=== PATIENT | female | born 1965 | race Caucasian/White ===

== ENCOUNTER 2016-04-27 16:57 | Emergency (ER) | payer OTHER, MEDICARE ==
[~2016-04-27] VITALS: Ht 170.2 cm; Wt 146.1 kg
[~2016-04-27 16:57] MED LIST: A/B OTIC 54 MG/15 ML OT; ALREX5 ML OPH; AMOXIL500 MG PO; BACTRIM DS 8001 TAB PO; BENADRYL 50 MG50 MG PO; CARAFATE1 GM/10 ML PO; CLARITIN10 MG PO; CRESTOR20 MG PO; CYCLOBENZAPRINE10 M2 PO; DILAUDID2 MG PO; DOXYCYCLINE MO100 MG PO; E.E.S. 200200 MG/5 M PO; FUROSEMIDE20 MG PO; HUMALOG MIX 50/53 ML SC; HYDROMORPHONE HC2 MG PO; HYDROMORPHONE HY2 MG PO; KEFLEX 250MG C250 MG PO; KEFLEX500 MG PO; LANTUS100 U/ML SC; LEVOTHROID0.2 MG PO; LEVOTHYROXINE0.2 M2 PO; LISINOPRIL40 MG PO; LYRICA200 M1 PO; MEDROL DOSEPAK1 PAC PO; MIRALAX17 GM PO; MONTELUKAST SOD10 M1 PO; NASONEX17 GM NAS; NORVASC5 M1 PO; NOVOLOG 10300 UNITS/ SC; NOVOLOG MI300 UNITS/ SC; NOVOLOG MIX 70/33 ML SC; NYSTATIN-TRIAMC15 GM TOP; ONDANSETRON4 M1 PO; OXYCODONE HCL5 M1 PO; OXYCODONE5 MG PO; PANTOPRAZOLE SO40 M1 PO; PATADAY 2.5 ML2.5 ML OPH; POTASSIUM CHLO10 ME1 PO; ROBAXIN500 M1 PO; SERTRALINE HYD100 MG PO; Senokot S PO; TESSALON PERLE100 MG PO; TRILIPIX 135 M135 MG PO; VITAMIN D1000 IU PO; VITAMIN E PO; ZOFRAN 4 MG TABL4 MG PO
--- NOTE | 2016-04-27 19:04 | ED UPPER/LOWER EXTREMITY COMPL ---
History of Present Illness General Chief Complaint: Lower Extremity Problems Stated Complaint: SWELLING TO LOWER EXTREMITIES Source: patient Exam Limitations: no limitations Vital Signs & Intake/Output Vital Signs & Intake/Output Vital Signs Date Time Temp Pulse Resp B/P Pulse O2 O2 Flow FiO2 Ox Delivery Rate 04/27 1925 96.8 88 18 134/70 98 Room Air 04/27 1920 98 Room Air 04/27 1715 96.9 74 16 132/69 100 Room Air ED Intake and Output 04/28 0000 04/27 1200 Intake Total Output Total Balance Patient 322 lb Weight Allergies Coded Allergies: atorvastatin (From LIPITOR) (UNKNOWN 12/10/15) ciprofloxacin (RASH 12/10/15) etodolac (From LODINE) (HIVES 12/10/15) hydrocodone (RASH 07/03/15) latex (RASH 12/10/15) moxifloxacin (From AVELOX) (HIVES 12/10/15) tramadol (SHUTS DOWN KIDNEYS 12/10/15) Reconcile Medications Amlodipine Besylate (Norvasc) 5 MG TABLET 1 TAB PO DAILY BP (Reported) Aspirin (Ecotrin*) 81 MG TABLET.DR 1 TAB PO DAILY HEART/BLOOD (Reported) Diphenhydramine HCl (Benadryl) 50 MG CAP 1 CAP PO QPM SLEEP/RESTLESS LEGS ( Reported) Fenofibric Acid (Trilipix 135 MG CAP) 135 MG CAPSULE.DR 135 MG PO QPM HYPERLIPIDEMIA (Reported) Furosemide 20 MG TABLET 20 MG PO DAILY FLUID RETENTION (Reported) Furosemide (Lasix) 20 MG TABLET 1 TAB PO BID LEG SWELLING TAKE TWO PILLS TONIGHT, AND THEN TWICE A DAY UNTIL SATURDAY MORNING. Insulin Regular, Human (Humulin R U-500) 500 UNIT/ML (CONCENTRATED) VIAL 180 UNITS SC QAM DM (Reported) Insulin Regular, Human (Humulin R U-500) 500 UNIT/ML (CONCENTRATED) VIAL 160 UNITS SC QPM DM (Reported) Levothyroxine Sodium (Levothroid) 200 MCG TABLET 0.2 MG PO 0700,2100 THYROID FOLLOW UP TSH QWEEK AND CC: TO DR SOLORIO AND DR MCCALLUM TAKE ON AN EMPTY STOMACH Lisinopril 40 MG TABLET 40 MG PO QPM HTN (Reported) Loratadine (Claritin) 10 MG TAB 1 TAB PO DAILY ALLERGIES (Reported) Loteprednol Etabonate (Alrex 5 Ml) 5 ML PEDRO 1 GTT OPH BID BOTH EYES (Reported ) Methocarbamol (Robaxin) 500 MG TAB 1-2 TAB PO TID MUSCLE SPASMS (Reported) Mometasone Furoate (Nasonex) 50 MCG SPRAY.PUMP 1 SPRAY JAJA DAILY PRN SEASONAL ALLERGIES (Reported) Montelukast Sodium 10 MG TABLET 10 MG PO DAILY SEASONAL ALLERGIES (Reported) Multiple Vitamin (Multivitamins) 1 EACH TABLET 1 TAB PO DAILY SUPPLEMENT ( Reported) Nystatin/Triamcin (Nystatin-Triamcinolone Cream) 15 GM CREAM..G. 1 GIOVANY TOP BID Vulvovaginitis apply to affected area(s) Pantoprazole Sodium 40 MG TABLET.DR 1 TAB PO BID GI (Reported) Potassium Chloride [address] 1 TAB PO DAILY SUPPLEMENT (Reported) Pregabalin (Lyrica) 200 MG CAP 200 MG PO TID DEPRESSION (Reported) Rosuvastatin Calcium (Crestor) 20 MG TABLET 20 MG PO QPM HYPELIPIDEMIA ( Reported) SERTRALINE HCL (Sertraline Hydrochloride) 100 MG TABLET 150 MG PO QPM DEPRESSION (Reported) Vitamin E Mixed (Vitamin E) (Unknown Strength) TABLET (Unknown Dose) PO DAILY SUPPLEMENT (Reported) Triage Note: PT TO ED FOR BILATERAL LEG "SWELLING". PT REPORTING FOR PAST SEVERAL DAYS SHE HAS NOTICED SWELLING IN HER LEGS AFTER SHE HAS BEEN SITTING FOR A "LONG TIME" REPORTING CHRONIC INTERMITTENT SOB FOR PAST SEVERAL WEEKS. PT REPORTING HX OF "SPONTANEOUS" COMPARTMENT SYNDROME TO L LEG WITH CHRONIC SWELLING TO SURGICAL SITE. REPORTING "DOCTORS DONT WHERE WHERE IT CAME FRM I DIDNT INJURE IT OR ANYTHING". PT REPORTING ABLE TO SLEEP LYING DOWN AT NIGHT, DENIES CP, PALPITATIONS. ALSO REPORTING A HEADACHE. , REPORTING IT WAS "SPONTANEOUS) Triage Nurses Notes Reviewed? yes Onset: Gradual Duration: day(s): Timing: recent history Severity: mild Pain/Injury Location: Bilateral: Leg. Method of Injury: unknown Modifying Factors: Improves With: rest. Associated Symptoms: swelling HPI: 50 yo woman h/o compartment syndrome of left leg presents with diffuse uniform mild swelling of bilateral legs for the past 1-2 days. She notes no pain, difficulty ambulating. She has been taking her lasix as directed. She is otherwise well. Past History Travel History Traveled to [place] past 21 day No Medical History Any Pertinent Medical History? 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 History of MRSA: No History of VRE: No History of CDIFF: No Pneumonia Vaccine: 04/22/10 Surgical History Surgical History: , hysterectomy, LOWER LUMBAR SX DISCECTOMY CARPAL TUNNEL COMPARTMENT SYNDROME TONSILS TORTICOLIS compartment syndrome surgery Psychosocial History Who do you live with Daughter Services at Home None What is your primary language Greenlandic Tobacco Use: Never used ETOH Use: denies use Illicit Drug Use: denies illicit drug use Family History Family History, If Any: MOTHER CLL (chronic lymphoid leukemia) FH: diabetes mellitus Relation not specified for: Coronary artery disease in father Thyroid disease in father Hx Contributory? No Review of Systems Review of Systems Constitutional: Reports: no symptoms. EENTM: Reports: no symptoms. Respiratory: Reports: no symptoms. Cardiovascular: Reports: no symptoms. Gastrointestinal/Abdominal: Reports: no symptoms. Genitourinary: Reports: no symptoms. Musculoskeletal: Reports: no symptoms. Skin: Reports: no symptoms. Neurological/Psychological: Reports: no symptoms. Hematologic/Endocrine: Reports: no symptoms. Immunological: Reports: no symptoms. All Other Systems: Reviewed and Negative Physical Exam Physical Exam General Appearance: well developed/nourished, mild distress Head: atraumatic Eyes: Bilateral: normal appearance. Ears, Nose, Throat: normal pharynx, normal ENT inspection, hearing grossly normal Neck: normal inspection, supple Cardiovascular/Respiratory: regular rate/rhythm Back: normal inspection Skin: intact, normal color, warm/dry Lymphatic: no anterior cervical [place] Comments: bilateral legs with 1+ mild pitting pretibial edema. no calf tenderness. left calf with surgical scar. no focal pain, erythema, tenderness. Progress Differential Diagnosis: edema vs other. Plan of Care: benign exam... will increase lasix to bid x 3 days... pt to follow up with pmd. Departure Departure Disposition: HOME OR SELF CARE Condition: Stable Clinical Impression Primary Impression: Edema Referrals: ISIDRO MONREAL,GIOVANNI Kidd (PCP/Family) Departure Forms: Customer Survey General Discharge Information Prescriptions: Current Visit Scripts Furosemide (Lasix) 1 TAB PO BID #6 TAB TAKE TWO PILLS TONIGHT, AND THEN TWICE A DAY UNTIL SATURDAY MORNING.
[2016-04-27] MEDS ORDERED: VITAMIN E400 UNI1 PO (19:06)
[2016-04-27] MEDS ORDERED: MULTIVITAMINS1 EAC9 PO (19:06)
[2016-04-27] MEDS ORDERED: HUMULIN R500 UNIT/1 SC ×2 (19:07)
[2016-04-27] MEDS ORDERED: ASPIRIN EC81 M1 PO (19:08)
[2016-04-27] MEDS ORDERED: LASIX20 M1 PO (19:22)
[2016-04-27 19:26] VITALS: BP 134/70
== END 2016-04-27 19:27 ==
LOC: ERH 16:57
DX: R60.9 Edema, unspecified (principal)

== ENCOUNTER 2016-05-04 12:36 | Emergency (ER) | payer OTHER, MEDICARE ==
[~2016-05-04] VITALS: Ht 170.2 cm; Wt 142.9 kg
[~2016-05-04 12:36] MED LIST changes: +ASPIRIN EC81 M1 PO; +HUMULIN R500 UNIT/1 SC; +LASIX20 M1 PO; +MULTIVITAMINS1 EAC9 PO; +VITAMIN E400 UNI1 PO
--- NOTE | 2016-05-04 13:24 | ED GENERAL ADULT ---
History of Present Illness General Chief Complaint: General Adult Stated Complaint: BLOOD SUGAR READ HIGH ON MACHINE, NAUSEA Source: patient Exam Limitations: no limitations Allergies Coded Allergies: atorvastatin (From LIPITOR) (UNKNOWN 12/10/15) ciprofloxacin (RASH 12/10/15) etodolac (From LODINE) (HIVES 12/10/15) hydrocodone (RASH 07/03/15) latex (RASH 12/10/15) moxifloxacin (From AVELOX) (HIVES 12/10/15) tramadol (SHUTS DOWN KIDNEYS 12/10/15) Reconcile Medications Amlodipine Besylate (Norvasc) 5 MG TABLET 1 TAB PO DAILY BP (Reported) Aspirin (Ecotrin*) 81 MG TABLET.DR 1 TAB PO DAILY HEART/BLOOD (Reported) Diphenhydramine HCl (Benadryl) 50 MG CAP 1 CAP PO QPM SLEEP/RESTLESS LEGS ( Reported) Fenofibric Acid (Trilipix 135 MG CAP) 135 MG CAPSULE.DR 135 MG PO QPM HYPERLIPIDEMIA (Reported) Furosemide (Lasix) 20 MG TABLET 1 TAB PO BID LEG SWELLING TAKE TWO PILLS TONIGHT, AND THEN TWICE A DAY UNTIL SATURDAY MORNING. Insulin Regular, Human (Humulin R U-500) 500 UNIT/ML (CONCENTRATED) VIAL 180 UNITS SC QAM DM (Reported) Insulin Regular, Human (Humulin R U-500) 500 UNIT/ML (CONCENTRATED) VIAL 160 UNITS SC QPM DM (Reported) Levothyroxine Sodium (Levothroid) 200 MCG TABLET 0.2 MG PO 0700,2100 THYROID FOLLOW UP TSH QWEEK AND CC: TO DR SOLORIO AND DR MCCALLUM TAKE ON AN EMPTY STOMACH Lisinopril 40 MG TABLET 40 MG PO QPM HTN (Reported) Loratadine (Claritin) 10 MG TAB 1 TAB PO DAILY ALLERGIES (Reported) Loteprednol Etabonate (Alrex 5 Ml) 5 ML PEDRO 1 GTT OPH BID BOTH EYES (Reported ) Methocarbamol (Robaxin) 500 MG TAB 1-2 TAB PO TID MUSCLE SPASMS (Reported) Mometasone Furoate (Nasonex) 50 MCG SPRAY.PUMP 1 SPRAY JAJA DAILY PRN SEASONAL ALLERGIES (Reported) Montelukast Sodium 10 MG TABLET 10 MG PO DAILY SEASONAL ALLERGIES (Reported) Multiple Vitamin (Multivitamins) 1 EACH TABLET 1 TAB PO DAILY SUPPLEMENT ( Reported) Nystatin/Triamcin (Nystatin-Triamcinolone Cream) 15 GM CREAM..G. 1 GIOVANY TOP BID Vulvovaginitis apply to affected area(s) Oxycodone HCl/Acetaminophen (Percocet 5-325 MG Tablet) 5 MG-325 MG TABLET 1-2 TAB PO Q6P PRN PAIN Pantoprazole Sodium 40 MG TABLET.DR 1 TAB PO BID GI (Reported) Potassium Chloride [address] 1 TAB PO DAILY SUPPLEMENT (Reported) Pregabalin (Lyrica) 200 MG CAP 200 MG PO TID DEPRESSION (Reported) Rosuvastatin Calcium (Crestor) 20 MG TABLET 20 MG PO QPM HYPELIPIDEMIA ( Reported) SERTRALINE HCL (Sertraline Hydrochloride) 100 MG TABLET 150 MG PO QPM DEPRESSION (Reported) Vitamin E Mixed (Vitamin E) (Unknown Strength) TABLET (Unknown Dose) PO DAILY SUPPLEMENT (Reported) Triage Note: PT TO ED STATING HER BLOODSUGAR AT HOME READ "HIGH". PT HAD RECENT INCREASE IN LASIX TO 40MG BID. PT STATES HER DOCTOR SAID SHE IS DEHYRATED FROM THE INCREASE IN LASIX. FINGERSTICK HERE 434. Triage Nurses Notes Reviewed? yes Onset: Abrupt Duration: day(s):, constant, continues in ED Timing: recent history Injury Environment: home Severity: moderate, severe No Modifying Factors: none HPI: 50-year-old female comes into emergency room for evaluation of bilateral leg pain and weakness. Patient reports that her sugar levels have been undetectable at home. Denies any vomiting fever or chills. Denies any chest pain or shortness of breath. Patient has a history of type 2 diabetes. Denies any other symptoms currently. Pain is sharp and throbbing and located in her legs bilaterally and radiated up into her body. History of neuropathy. (ELLIE THOMAS) Vital Signs & Intake/Output Vital Signs & Intake/Output Vital Signs Date Time Temp Pulse Resp B/P Pulse O2 O2 Flow FiO2 Ox Delivery Rate 05/04 1711 97.7 83 18 129/66 98 Room Air 05/04 1533 97.9 89 18 124/63 97 Room Air 05/04 1348 Room Air 05/04 1249 97.3 102 20 112/75 96 Room Air Past History Travel History Traveled to [place] past 21 day No Medical History Any Pertinent Medical History? 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 History of MRSA: No History of VRE: No History of CDIFF: No Pneumonia Vaccine: 04/22/10 Surgical History Surgical History: , hysterectomy, LOWER LUMBAR SX DISCECTOMY CARPAL TUNNEL COMPARTMENT SYNDROME TONSILS TORTICOLIS compartment syndrome surgery Psychosocial History Who do you live with Daughter Services at Home None What is your primary language Yi Tobacco Use: Quit >30 days ago ETOH Use: denies use Illicit Drug Use: denies illicit drug use Family History Family History, If Any: MOTHER CLL (chronic lymphoid leukemia) FH: diabetes mellitus Relation not specified for: Coronary artery disease in father Thyroid disease in father Hx Contributory? No (ELLIE THOMAS) Review of Systems Review of Systems Constitutional: Reports: no symptoms. EENTM: Reports: no symptoms. Respiratory: Reports: no symptoms. Cardiovascular: Reports: no symptoms. GI: Reports: no symptoms. Genitourinary: Reports: no symptoms. Musculoskeletal: Reports: see HPI. Skin: Reports: no symptoms. Neurological/Psychological: Reports: no symptoms. Hematologic/Endocrine: Reports: no symptoms. Immunologic/Allergic: Reports: no symptoms. All Other Systems: Reviewed and Negative (ELLIE THOMAS) Physical Exam Physical Exam General Appearance: well developed/nourished, alert, awake Head: atraumatic, normal appearance Eyes: Bilateral: normal appearance. Ears, Nose, Throat: normal pharynx, normal ENT inspection Neck: normal inspection Respiratory: normal breath sounds, no respiratory distress Cardiovascular: regular rate/rhythm Gastrointestinal: soft Extremities: normal inspection, normal range of motion, tenderness Neurologic/Psych: awake, alert, oriented x 3, normal gait, normal mood/affect Skin: intact, normal color Core Measures ACS in differential dx? No CVA/TIA Diagnosis: No Severe Sepsis Present: No Septic Shock Present: No (ELLIE THOMAS) Progress Differential Diagnoses I considered the following diagnoses in my evaluation of the patient: Peripheral neuropathy, DKA, hyperosmolar, hyperglycemia, DVT, arterial occlusion , cellulitis, Initial ED EKG: none Comments: 05/04/2016 4:59:00 PM Patient clinically looks well. Nontoxic-appearing. No apparent distress. No suspicion for DKA at this point. Uncontrolled diabetes. Follow-up with primary care doctor. Return if any other concerns. Patient reevaluated multiple times. Continued to remain in no apparent distress. Case discussed with Dr. Dewitt. (ANGEL HUNT,[place]) Plan of Care: Orders Procedure Date/time Status URINALYSIS 05/04 1323 Complete COMPREHENSIVE METABOLIC PANEL 05/04 1323 Complete CBC WITHOUT DIFFERENTIAL 05/04 1323 Complete ACETONE 05/04 1323 Complete Laboratory Tests 05/04/16 1623: Lactic Acid Cancelled 05/04/16 1330: Anion Gap 19 H, Estimated GFR 53 L, BUN/Creatinine Ratio 27.3 H, Glucose 581 *H, Calcium 10.6 H, Total Bilirubin 0.7, AST 63 H, ALT 54 H, Alkaline Phosphatase 105, Total Protein 8.1, Albumin 4.9, Globulin 3.2, Albumin/Globulin Ratio 1.5, CBC w Diff NO MAN DIFF REQ, RBC 4.90, MCV 80.8 L, MCH 26.9 L, RDW 15.0 H, MPV 9.2, Gran % 70.5, Lymphocytes % 21.2, Monocytes % 6.4, Eosinophils % 1.6, Basophils % 0.3, Absolute Granulocytes 4.4, Absolute Lymphocytes 1.3, Absolute Monocytes 0.4, Absolute Eosinophils 0.1, Absolute Basophils 0, PUBS MCHC 33.3, Acetone Level NEGATIVE, Urine Color YEL, Urine Clarity CLEAR, Urine pH 6.0, Ur Specific [place] 1.010, Urine Protein NEG, Urine Ketones NEG, Urine Nitrite NEG, Urine Bilirubin NEG, Urine Urobilinogen 0.2, Ur Leukocyte Esterase NEG, Ur Microscopic EXAM NOT REQUIRED, Urine Hemoglobin NEG, Urine Glucose >= 1000 H Departure Departure Disposition: HOME OR SELF CARE Condition: Stable Clinical Impression Primary Impression: Hyperglycemia Secondary Impressions: Peripheral neuropathy Referrals: ISIDRO MONREAL,GIOVANNI Kidd (PCP/Family) Additional Instructions: Take Percocet for pain. 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 Return if any concerns worsening symptoms. Have your blood glucose level rechecked. Please go over all results of today's visit with your primary care doctor. Contact your primary care doctor to let them know you were here in the emergency room. There may be nonspecific findings which may not be related to your visit today here in the emergency room but may require further evaluation and chronic monitoring by your primary care doctor. If you had a laceration today the chance of foreign body always remains. You should follow-up with your primary care doctor for recheck in 3-5 days for a wound check. If you had an x-ray done there is a chance that a fracture could have been missed on initial read and you should follow-up with your primary care doctor for repeat x-rays if symptoms persist. If your blood pressure was elevated here in the emergency room please have rechecked by her primary care doctor within the next 48 hours by your primary care doctor. If you were prescribed a narcotic here in the emergency room or any type of controlled substances you're not allowed to drive while taking this medication or operate any type of heavy machinery. Narcotics can make you feel lightheaded dizziness nausea and can cause constipation. 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 Thank you for choosing [facility] emergency room. Please return to the emergency room immediately if you have any other concerns worsening of symptoms. Departure Forms: Customer Survey General Discharge Information Prescriptions: Current Visit Scripts Oxycodone HCl/Acetaminophen (Percocet 5-325 MG Tablet) 1-2 TAB PO Q6P PRN PAIN #10 TAB (ELLIE THOMAS) PA/RAIL BENDER Co-Sign Statement Statement: ED Attending supervision documentation- [] I saw and evaluated the patient. I have also reviewed all the pertinent lab results and diagnostic results. I agree with the findings and the plan of care as documented in the PA's/RAIL BENDER's documentation. [X] I have reviewed the ED Record and agree with the PA's/RAIL BENDER's documentation. [] Additions or exceptions (if any) to the PAs/RAIL BENDER's note and plan are summarized below: [] (NOEMI MONREAL,FINESSE Lower[place]) Critical Care Note Critical Care Note Critical Care Time: non-applicable (ELLIE THOMAS)
[2016-05-04 13:38] LABS: ABSOLUTE BASOPHIL COUNT 0 /CUMM (0.0-0.2); ABSOLUTE EOSINOPHIL COUNT 0.1 /CUMM (0.0-0.7); ABSOLUTE GRANULOCYTE CT 4.4 /CUMM (1.4-6.5); ABSOLUTE LYMPH COUNT 1.3 /CUMM (1.2-3.4); ABSOLUTE MONOCYTE COUNT 0.4 /CUMM (0.10-0.60); BASOPHIL % 0.3 % (0.0-2.0); EOSINOPHIL % 1.6 % (0-5); HEMATOCRIT 39.5 % (37-47); MEAN CORPUSCULAR HGB 26.9 PG (27.0-31.0); MEAN CORPUSCULAR HGB CONC 33.3 G/DL (33.0-37.0); MEAN CORPUSCULAR VOLUME 80.8 FL (81.0-99.0); MEAN PLATELET VOLUME 9.2 FL (7.4-10.4); PLATELET COUNT 192 /CUMM (130-400); WHITE BLOOD CELL COUNT 6.3 /CUMM (4.8-10.8)
[2016-05-04 13:39] LABS: GRANULOCYTE % 70.5 % (42.2-75.2)
[2016-05-04 17:11] VITALS: BP 129/66
[2016-05-04] MEDS ORDERED: PERCOCET 5-3251 EACH PO (17:22)
== END 2016-05-04 17:16 ==
LOC: ERH 12:36
PROVIDERS: Physician Assistant Medical
DX: E11.40 Type 2 diabetes mellitus with diabetic neuropathy, unspecified (principal); E11.65 Type 2 diabetes mellitus with hyperglycemia; R53.1 Weakness
CPT/HCPCS: 81003; 96360; 96361; 96372; J1815

== ENCOUNTER 2016-06-22 15:04 | Emergency (ER) | payer OTHER, MEDICARE ==
[~2016-06-22] VITALS: Ht 165.1 cm; Wt 136.1 kg
[~2016-06-22 15:04] MED LIST changes: +PERCOCET 5-3251 EACH PO
[2016-06-22 15:16] VITALS: BP 126/60
[2016-06-22] MEDS ORDERED: SERTRALINE HCL100 MG PO (15:40)
[2016-06-22] MEDS ORDERED: DIPHENHYDRAMINE50 M1 PO (15:41)
[2016-06-22] MEDS ORDERED: LEVOTHYROXINE200 MC1 PO (15:42)
[2016-06-22] MEDS ORDERED: CRESTOR20 M2 PO (15:42)
[2016-06-22] MEDS ORDERED: POTASSIUM CHLO10 ME5 PO (15:42)
--- NOTE | 2016-06-22 15:44 | ED GENERAL ADULT ---
History of Present Illness General Chief Complaint: Chest Pain Stated Complaint: CHEST PAIN,LEFT ARM NUMBNESS Source: patient Exam Limitations: no limitations Vital Signs & Intake/Output Vital Signs & Intake/Output Vital Signs Date Time Temp Pulse Resp B/P Pulse O2 O2 Flow FiO2 Ox Delivery Rate 06/22 1745 94 Room Air 06/22 1604 97 06/22 1516 99.7 96 18 126/60 98 Room Air Allergies Coded Allergies: atorvastatin (From LIPITOR) (UNKNOWN 12/10/15) ciprofloxacin (RASH 12/10/15) etodolac (From LODINE) (HIVES 12/10/15) hydrocodone (RASH 07/03/15) latex (RASH 12/10/15) moxifloxacin (From AVELOX) (HIVES 12/10/15) tramadol (SHUTS DOWN KIDNEYS 12/10/15) Reconcile Medications Albuterol Sulfate (Proventil Hfa) 90 MCG HFA.AER.AD 2 PUF INH Q4 SOB Amlodipine Besylate (Norvasc) 5 MG TABLET 1 TAB PO DAILY BP (Reported) Amoxicillin/Potassium Clav (Augmentin 875-125 Tablet) 875 MG-125 MG TABLET 1 TAB PO BID BRONCHITIS Aspirin (Ecotrin*) 81 MG TABLET.DR 1 TAB PO DAILY HEART/BLOOD (Reported) Brompheniramine/Pseudoephed/Dm (Bromfed Dm Cough Syrup) 2 MG-30 MG-10 MG/5 ML SYRUP 5-10 ML PO Q4-6 PRN PRN cough Diphenhydramine HCl 50 MG CAPSULE 1 CAP PO QPM ALLERGIES (Reported) Fenofibric Acid (Choline) (Fenofibric Acid) 135 MG CAPSULE.DR 1 CAP PO DAILY UNK (Reported) Furosemide (Lasix) 20 MG TABLET 1 TAB PO BID LEG SWELLING TAKE TWO PILLS TONIGHT, AND THEN TWICE A DAY UNTIL SATURDAY MORNING. Insulin Regular, Human (Humulin R U-500 Kwikpen) 500/ML (3) INSULN.PEN 150 UNIT SC BID HYPERGLYCEMIA (Reported) Insulin Regular, Human (Humulin R U-500) 500 UNIT/ML (CONCENTRATED) VIAL 180 UNITS SC QAM DM (Reported) Insulin Regular, Human (Humulin R U-500) 500 UNIT/ML (CONCENTRATED) VIAL 160 UNITS SC QPM DM (Reported) Levothyroxine Sodium 200 MCG TABLET 1 TAB PO DAILY HTN (Reported) Loteprednol Etabonate (Alrex) 0.2 % DROPS.SUSP 1 GTT OPH BID EYE PROBLEMS ( Reported) 1 GTT EACH EYE Methocarbamol (Robaxin) 500 MG TABLET 1-2 TAB PO TID MUSCLE SPASMS (Reported) Mometasone Furoate (Nasonex) 50 MCG SPRAY.PUMP 1 SPRAY JAJA DAILY PRN SEASONAL ALLERGIES (Reported) Montelukast Sodium 10 MG TABLET 1 TAB PO DAILY ALLERGIES (Reported) Multiple Vitamin (Multivitamins) 1 EACH TABLET 1 TAB PO DAILY SUPPLEMENT ( Reported) Nystatin/Triamcin (Nystatin-Triamcinolone Cream) 15 GM CREAM..G. 1 GIOVANY TOP BID Vulvovaginitis apply to affected area(s) Oxycodone HCl/Acetaminophen (Percocet 5-325 MG Tablet) 5 MG-325 MG TABLET 1-2 TAB PO Q6P PRN PAIN Pantoprazole Sodium 40 MG TABLET.DR 1 TAB PO BID GI (Reported) Potassium Chloride 10 MEQ TAB.ER.PRT 1 TAB PO DAILY HTN (Reported) Prednisone (Deltasone) 20 MG TABLET 1 TAB PO TID BRONCHITIS Pregabalin (Lyrica) 200 MG CAPSULE 1 CAP PO TID DEPRESSION (Reported) Rosuvastatin Calcium (Crestor) 20 MG TABLET 1 TAB PO DAILY CHOLESTEROL ( Reported) Sertraline HCl 100 MG TABLET 1 TAB PO DAILY DEPRESSION (Reported) Vitamin E Mixed (Vitamin E) (Unknown Strength) TABLET (Unknown Dose) PO DAILY SUPPLEMENT (Reported) Triage Nurses Notes Reviewed? yes Onset: Abrupt Duration: day(s): (2), constant, continues in ED Timing: recent history Injury Environment: home No Modifying Factors: none HPI: 50-year-old female comes into emergency room for further evaluation of cough, mucus production, yellow in nature, body aches and chest pain. Symptoms began on for the past 2 days. Patient reports that she has some pain in the right side of her back from coughing as well as some pain in the center of her chest from coughing. Patient reports it donnelly in her throat. Denies any vomiting. Denies any history of COPD or lung problems. Nothing seems to make the symptoms better or worse. Denies any other associated symptoms currently. (ELLIE THOMAS) Past History Travel History Traveled to [place] past 21 day No Medical History Any Pertinent Medical History? see below for history Neurological: migraine, peripheral neuropathy EENT: otitis media Cardiovascular: hypertension, hyperlipidemia Respiratory: asthma Gastrointestinal: GASTROPARESIS Hepatic: NONE Renal: ACUTE KIDNEY FAILURE X 2 Musculoskeletal: disk herniation, fibromyalgia, COMPARTMENT SYNDROME CELLULITIS Psychiatric: depression, insomnia Endocrine: diabetes, hypothyroidism Blood Disorders: NONE Cancer(s): NONE DIRECTOR MBA/Reproductive: NONE History of MRSA: No History of VRE: No History of CDIFF: No Surgical History Surgical History: , hysterectomy, LOWER LUMBAR SX DISCECTOMY CARPAL TUNNEL COMPARTMENT SYNDROME TONSILS TORTICOLIS compartment syndrome surgery Psychosocial History Who do you live with Daughter Services at Home None What is your primary language Italian Tobacco Use: Quit >30 days ago ETOH Use: denies use Family History Family History, If Any: MOTHER CLL (chronic lymphoid leukemia) FH: diabetes mellitus Relation not specified for: Coronary artery disease in father Thyroid disease in father Hx Contributory? No (ELLIE THOMAS) Review of Systems Review of Systems Constitutional: Reports: see HPI. EENTM: Reports: no symptoms. Respiratory: Reports: see HPI. Cardiovascular: Reports: no symptoms. GI: Reports: no symptoms. Genitourinary: Reports: no symptoms. Musculoskeletal: Reports: see HPI. Skin: Reports: no symptoms. Neurological/Psychological: Reports: no symptoms. Hematologic/Endocrine: Reports: no symptoms. Immunologic/Allergic: Reports: no symptoms. All Other Systems: Reviewed and Negative (ELLIE THOMAS) Physical Exam Physical Exam General Appearance: well developed/nourished, no apparent distress, alert, awake Head: atraumatic, normal appearance Eyes: Bilateral: normal appearance, EOMI. Ears, Nose, Throat: normal pharynx, normal ENT inspection, hearing grossly normal Neck: normal inspection, full range of motion Respiratory: normal breath sounds, no respiratory distress Cardiovascular: regular rate/rhythm Gastrointestinal: soft, non-tender Back: normal inspection Extremities: normal inspection, normal range of motion, no edema Neurologic/Psych: awake, alert, oriented x 3, normal gait, normal mood/affect Skin: intact, normal color Core Measures ACS in differential dx? No CVA/TIA Diagnosis: No Severe Sepsis Present: No Septic Shock Present: No (ELLIE THOMAS) Progress Differential Diagnoses I considered the following diagnoses in my evaluation of the patient: Bronchitis, COPD, pneumonia, PE, UT, influenza, Plan of Care: Orders Procedure Date/time Status TROPONIN LEVEL 06/22 1518 Complete COMPREHENSIVE METABOLIC PANEL 06/22 1518 Complete CBC WITHOUT DIFFERENTIAL 06/22 1518 Complete EKG 06/22 1507 Active Laboratory Tests 06/22/16 1619: Anion Gap 11, Estimated GFR > 60, BUN/Creatinine Ratio 20.0, Glucose 193 H, Calcium 10.0, Total Bilirubin 0.4, AST 85 H, ALT 62 H, Alkaline Phosphatase 78 , Troponin I < 0.01, Total Protein 7.3, Albumin 4.4, Globulin 2.9, Albumin/ Globulin Ratio 1.5, CBC w Diff NO MAN DIFF REQ, RBC 4.38, MCV 81.0, MCH 26.6 L, RDW 15.5 H, MPV 8.6, Gran % 58.8, Lymphocytes % 26.5, Monocytes % 9.2, Eosinophils % 3.7, Basophils % 1.8, Absolute Granulocytes 2.9, Absolute Lymphocytes 1.3, Absolute Monocytes 0.5, Absolute Eosinophils 0.2, Absolute Basophils 0.1, PUBS MCHC 32.8 L Diagnostic Imaging: Viewed by Me: Radiology Read. Discussed w/RAD: Radiology Read. Initial ED EKG: normal intervals, normal p-waves, normal QRS complex, normal sinus rhythm, rate (95) Comments: SERVICE DATE: 06/22/16-1522 EXAM TYPE: RAD - XRY-CHEST XRAY, PA AND LATERAL EXAMINATION: XR CHEST CLINICAL INFORMATION: Cough COMPARISON: Chest x-ray most recent prior dated 12/10/2015 TECHNIQUE: 2 views of the chest were obtained. FINDINGS: Stable cardiomediastinal silhouette. Visualized lungs are clear. Evaluation is limited due to patient's body habitus. Visualized bony thorax is intact. IMPRESSION: No acute pulmonary disease. DICTATED BY: EFRAIN BARROSO MD (ELLIE THOMAS) Departure Departure Disposition: HOME OR SELF CARE Condition: Stable Clinical Impression Primary Impression: Bronchitis Referrals: ISIDRO MONREAL,GIOVANNI Kidd (PCP/Family) Additional Instructions: Take Augmentin, prednisone, Bromfed, and albuterol as prescribed. Follow-up with primary care doctor. Return if any concerns worsening symptoms. Please go over all results of today's visit with your primary care doctor. Contact your primary care doctor to let them know you were here in the emergency room. There may be nonspecific findings which may not be related to your visit today here in the emergency room but may require further evaluation and chronic monitoring by your primary care doctor. If you had a laceration today the chance of foreign body always remains. You should follow-up with your primary care doctor for recheck in 3-5 days for a wound check. If you had an x-ray done there is a chance that a fracture could have been missed on initial read and you should follow-up with your primary care doctor for repeat x-rays if symptoms persist. If your blood pressure was elevated here in the emergency room please have rechecked by her primary care doctor within the next 48 hours by your primary care doctor. If you were prescribed a narcotic here in the emergency room or any type of controlled substances you're not allowed to drive while taking this medication or operate any type of heavy machinery. Narcotics can make you feel lightheaded dizziness nausea and can cause constipation. You may need to pick up operator a stool softener. Thank you for choosing [facility] emergency room. Please return to the emergency room immediately if you have any other concerns worsening of symptoms. Departure Forms: Customer Survey General Discharge Information Prescriptions: Current Visit Scripts Brompheniramine/Pseudoephed/Dm (Bromfed Dm Cough Syrup) 5-10 ML PO Q4-6 PRN PRN cough #120 ML Prednisone (Deltasone) 1 TAB PO TID #12 MG Albuterol Sulfate (Proventil Hfa) 2 PUF INH Q4 #1 INHAL Amoxicillin/Potassium Clav (Augmentin 875-125 Tablet) 1 TAB PO BID #20 TAB Comments 06/22/2016 7:16:37 PM Patient clinically looks well. Nontoxic-appearing. Symptoms most consistent with bronchitis. Not actively having chest pain. Patient has all symptoms to go along with viral illness. Pain is worse with cough. More muscular in nature. Return if any other concerns worsening symptoms. Reevaluated multiple times. Patient understands and agrees with plan of care. case discussed with dr laurent. (ELLIE THOMAS) PA/TEACHER AIDE CLERICAL Co-Sign Statement Statement: ED Attending supervision documentation- [] I saw and evaluated the patient. I have also reviewed all the pertinent lab results and diagnostic results. I agree with the findings and the plan of care as documented in the PA's/TEACHER AIDE CLERICAL's documentation. [X] I have reviewed the ED Record and agree with the PA's/TEACHER AIDE CLERICAL's documentation. [] Additions or exceptions (if any) to the PAs/TEACHER AIDE CLERICAL's note and plan are summarized below: [] (SELINA MONREAL,ADAL) Critical Care Note Critical Care Note Critical Care Time: non-applicable (ELLIE THOMAS)
[2016-06-22] MEDS ORDERED: FENOFIBRIC ACI135 M1 PO (15:45)
[2016-06-22] MEDS ORDERED: HUMULIN R500 UNIT/2 SC (15:45)
--- NOTE | 2016-06-22 15:52 | RADIOLOGY REPORT ---
EXAMINATION: XR CHEST CLINICAL INFORMATION: Cough COMPARISON: Chest x-ray most recent prior dated 12/10/2015 TECHNIQUE: 2 views of the chest were obtained. FINDINGS: Stable cardiomediastinal silhouette. Visualized lungs are clear. Evaluation is limited due to patient's body habitus. Visualized bony thorax is intact. IMPRESSION: No acute pulmonary disease.
[2016-06-22 16:36] LABS: ABSOLUTE BASOPHIL COUNT 0.1 /CUMM (0.0-0.2); ABSOLUTE EOSINOPHIL COUNT 0.2 /CUMM (0.0-0.7); ABSOLUTE GRANULOCYTE CT 2.9 /CUMM (1.4-6.5); ABSOLUTE LYMPH COUNT 1.3 /CUMM (1.2-3.4); ABSOLUTE MONOCYTE COUNT 0.5 /CUMM (0.10-0.60); BASOPHIL % 1.8 % (0.0-2.0); EOSINOPHIL % 3.7 % (0-5); GRANULOCYTE % 58.8 % (42.2-75.2); HEMATOCRIT 35.5 % (37-47); MEAN CORPUSCULAR HGB 26.6 PG (27.0-31.0); MEAN CORPUSCULAR HGB CONC 32.8 G/DL (33.0-37.0); MEAN PLATELET VOLUME 8.6 FL (7.4-10.4); PLATELET COUNT 193 /CUMM (130-400); RBC DISTRIBUTION WIDTH 15.5 % (11.5-14.5); RED BLOOD CELL CT 4.38 /CUMM (4.20-5.40)
[2016-06-22] MEDS ORDERED: PROVENTIL HFA6.7 GM INH (17:29)
[2016-06-22] MEDS ORDERED: DELTASONE20 MG PO (17:29)
[2016-06-22] MEDS ORDERED: BROMFED DM COU118 M1 PO (17:29)
[2016-06-22] MEDS ORDERED: AUGMENTIN 875-1 EACH PO (17:29)
== END 2016-06-22 18:04 ==
LOC: ERH 15:04
PROVIDERS: Physician Assistant Medical
DX: J40 Bronchitis, not specified as acute or chronic (principal); R07.9 Chest pain, unspecified; Z87.891 Personal history of nicotine dependence
CPT/HCPCS: 1263; 93005; 93010

== ENCOUNTER 2016-07-27 12:54 | Emergency (ER) | payer OTHER, MEDICARE ==
[~2016-07-27 12:54] MED LIST changes: +AUGMENTIN 875-1 EACH PO; +BROMFED DM COU118 M1 PO; +CRESTOR20 M2 PO; +DELTASONE20 MG PO; +DIPHENHYDRAMINE50 M1 PO; +FENOFIBRIC ACI135 M1 PO; +HUMULIN R500 UNIT/2 SC; +LEVOTHYROXINE200 MC1 PO; +POTASSIUM CHLO10 ME5 PO; +PROVENTIL HFA6.7 GM INH; +SERTRALINE HCL100 MG PO
--- NOTE | 2016-07-27 13:25 | ED CARDIAC/CP/PALPITATIONS ---
History of Present Illness General Chief Complaint: Chest Pain Stated Complaint: SENT BY DR FELIX FOR EVAL,CHEST PAIN Source: patient Exam Limitations: no limitations Vital Signs & Intake/Output Vital Signs & Intake/Output Vital Signs Date Time Temp Pulse Resp B/P Pulse O2 O2 Flow FiO2 Ox Delivery Rate 07/27 1524 97.4 86 18 136/65 97 Room Air 07/27 1310 98.3 87 20 140/70 97 Room Air Allergies Coded Allergies: atorvastatin (From LIPITOR) (UNKNOWN 12/10/15) ciprofloxacin (RASH 12/10/15) etodolac (From LODINE) (HIVES 12/10/15) hydrocodone (RASH 07/03/15) latex (RASH 12/10/15) moxifloxacin (From AVELOX) (HIVES 12/10/15) tramadol (SHUTS DOWN KIDNEYS 12/10/15) Reconcile Medications Albuterol Sulfate (Proventil Hfa) 90 MCG HFA.AER.AD 2 PUF INH Q4 SOB Amlodipine Besylate (Norvasc) 5 MG TABLET 1 TAB PO QPM BP (Reported) Amlodipine Besylate 5 MG TABLET 1 TAB PO QPM HEART (Reported) Aspirin (Ecotrin*) 81 MG TABLET.DR 1 TAB PO QPM HEART/BLOOD (Reported) Diphenhydramine HCl 50 MG CAPSULE 1 CAP PO QPM ALLERGIES (Reported) Fenofibric Acid (Choline) (Fenofibric Acid) 135 MG CAPSULE.DR 1 CAP PO QPM UNK (Reported) Furosemide 20 MG TABLET 1 TAB PO DAILY WATER PILL (Reported) Insulin Regular, Human (Humulin R U-500) 500 UNIT/ML (CONCENTRATED) VIAL 185 UNITS SC QAM DM (Reported) Insulin Regular, Human (Humulin R U-500 Kwikpen) 500/ML (3) INSULN.PEN 180 UNIT SC QPM HYPERGLYCEMIA (Reported) Levothyroxine Sodium 200 MCG TABLET 1 TAB PO BID THYROID (Reported) Lisinopril 40 MG TABLET 1 TAB PO QPM HEART (Reported) Loteprednol Etabonate (Alrex) 0.2 % DROPS.SUSP 1 GTT OPH BID EYE PROBLEMS ( Reported) 1 GTT EACH EYE Methocarbamol (Robaxin) 500 MG TABLET 1-2 TAB PO TID MUSCLE SPASMS (Reported) Mometasone Furoate (Nasonex) 50 MCG SPRAY.PUMP 1 SPRAY JAJA DAILY PRN SEASONAL ALLERGIES (Reported) Montelukast Sodium 10 MG TABLET 1 TAB PO QPM ALLERGIES (Reported) Multiple Vitamin (Multivitamins) 1 EACH TABLET 1 TAB PO QPM SUPPLEMENT ( Reported) Nystatin/Triamcin (Nystatin-Triamcinolone Cream) 15 GM CREAM..G. 1 GIOVANY TOP BID Vulvovaginitis apply to affected area(s) Oxycodone HCl/Acetaminophen (Percocet 5-325 MG Tablet) 5 MG-325 MG TABLET 1 TAB PO BID PRN PAIN Pantoprazole Sodium 40 MG TABLET.DR 1 TAB PO BID GI (Reported) Potassium Chloride 10 MEQ TAB.ER.PRT 1 TAB PO QPM HTN (Reported) Pregabalin (Lyrica) 200 MG CAPSULE 1 CAP PO TID DEPRESSION (Reported) Rosuvastatin Calcium (Crestor) 20 MG TABLET 1 TAB PO QPM CHOLESTEROL ( Reported) Sertraline HCl 100 MG TABLET 2 TAB PO QPM DEPRESSION (Reported) Vitamin E (Dl,Tocopheryl Acet) (Vitamin E) 400 UNIT CAPSULE 3 CAP PO QPM SUPPLEMENT (Reported) Triage Note: PT PRESENTS TO ER C/O OF MIDSTERNAL CHEST PAIN THAT STARTED SATURDAY AND HAS BEEN ON / OFF. PT STATES TOADY PAIN IS WORSE AND RADIATES TO LOWER BACK. PT ALSO C/O OF SOB WITH EXERTION. PT STATES WHEN VISTING NURSE ARRIVED TODAY SHE WAS HYPERTENSIVE. PT HAS AN EXTENSIVE MEDICAL HX INCLUDING HTN AND HIGH CHOL. EKG DONE ON ARRIVAL Triage Nurses Notes Reviewed? yes Onset: Gradual Duration: constant Timing: recent history Location: substernal Radiation: back Activities at Onset: none HPI: Patient is a 50-year-old female with past medical history of diabetes, hypertension, hyperlipidemia and gastroparesis and hypothyroidism who presents to emergency room stating that she has had chest pain from time to time remotely however in the last 3 days she stating that the chest pain is more persistent where she describes this anterior chest wall substernal best made worse with deep dilation upper extremity movement and palpation. Patient has pain to her back denies any hemoptysis arm pain jaw pain fevers chills cough history of DVT or PE history of oral contraceptive use recent travel or recent surgery or leg swelling. Patient has tried Tylenol and ibuprofen with no relief of symptoms. (CARITO HUNT,COLLETTE) Past History Travel History Traveled to [place] past 21 day No Medical History Any Pertinent Medical History? see below for history Neurological: migraine, peripheral neuropathy EENT: otitis media Cardiovascular: hypertension, hyperlipidemia Respiratory: asthma Gastrointestinal: GASTROPARESIS Hepatic: NONE Renal: ACUTE KIDNEY FAILURE X 2 Musculoskeletal: disk herniation, fibromyalgia, COMPARTMENT SYNDROME CELLULITIS Psychiatric: depression, insomnia Endocrine: diabetes, hypothyroidism Blood Disorders: NONE Cancer(s): NONE MASON TENDER/Reproductive: NONE History of MRSA: No History of VRE: No History of CDIFF: No Surgical History Surgical History: , hysterectomy, LOWER LUMBAR SX DISCECTOMY CARPAL TUNNEL COMPARTMENT SYNDROME TONSILS TORTICOLIS compartment syndrome surgery Psychosocial History Who do you live with Daughter Services at Home None What is your primary language Romanian Tobacco Use: Never used Family History Family History, If Any: MOTHER CLL (chronic lymphoid leukemia) FH: diabetes mellitus Relation not specified for: Coronary artery disease in father Thyroid disease in father Hx Contributory? No (COLLETTE PAEZ) Review of Systems Review of Systems Constitutional: Reports: no symptoms. EENTM: Reports: no symptoms. Respiratory: Reports: see HPI. Denies: cough, hemoptysis. Cardiovascular: Reports: see HPI, chest pain. GI: Reports: no symptoms. Genitourinary: Reports: no symptoms. Musculoskeletal: Reports: see HPI. Skin: Reports: no symptoms. Neurological/Psychological: Reports: no symptoms. Hematologic/Endocrine: Reports: no symptoms. Immunologic/Allergic: Reports: no symptoms. All Other Systems: Reviewed and Negative (COLLETTE PAEZ) Physical Exam Physical Exam General Appearance: no apparent distress, obese Cardiovascular: regular rate/rhythm Comments: HEENT: Normal EENT exam, Neck: Supple, no lymphadenopathy, normal range of motion without pain or tenderness Back: Nontender, no CVA tenderness. Cardiovascular: Regular rate and rhythms no murmurs rubs or gallops, normal JVP Respiratory: Superficial anterior chest wall point tenderness No respiratory distress.breath sounds clear to auscultation bilaterally Deep inhalation reproduced pain Abdomen: Soft, nontender nondistended, no appreciable organomegaly. Normal bowel sounds. No ascites Extremity: No edema, no calf tenderness to palpation, normal and equal pulses. Upper extremity horizontal resisted range of motion with aDDuction reproduced pain of chest wall Neuro: Alert oriented x3, motor sensory normal, Skin: No appreciable rash on exposed skin, skin is warm and dry. Psych: Mood and affect is normal, memory and judgment is normal. Core Measures ACS in differential dx? Yes Severe Sepsis Present: No Septic Shock Present: No (CARITO HUNT,COLLETTE) Progress Differential Diagnosis: AMI, aortic dissection, atrial fibrillation, cholecystitis, CHF/pulm edema, costochondritis, hyperkalemia, hypovolemia, hyperthyroid, hyperventilation, intracranial hemorrhage, musculoskeletal pain, myocarditis, pancreatitis, pericarditis, pneumonia, pneumothorax, PSVT, pulmonary embolism, PUD/GERD, PVCs/PACs, respiratory failure, rib fracture, sepsis, unstable angina, V-fib/V-Tach Plan of Care: Orders Procedure Date/time Status EKG 07/27 1820 Active TROPONIN LEVEL 07/27 133 Complete HUMAN BETA HCG SCREEN 07/27 133 Complete COMPREHENSIVE METABOLIC PANEL 07/27 1334 Complete CBC WITHOUT DIFFERENTIAL 07/27 1333 Complete EKG 07/27 1257 Active Current Medications Sig/Nikkie Start time Last Medication Dose Stop Time Status Admin Ketorolac 30 MG ONCE ONE 07/27 1630 CAN Tromethamine 07/27 1631 (Toradol) Morphine Sulfate 4 MG ONCE ONE 07/27 1630 CAN (Morphine) 07/27 1631 Laboratory Tests 07/27/16 1419: Anion Gap 10, Estimated GFR > 60, BUN/Creatinine Ratio 31.1 H, Glucose 242 H, Calcium 10.2, Total Bilirubin 0.4, AST 94 H, ALT 72 H, Alkaline Phosphatase 73 , Troponin I < 0.01, Total Protein 7.3, Albumin 4.4, Globulin 2.9, Albumin/ Globulin Ratio 1.5, Total Beta HCG NEGATIVE, CBC w Diff NO MAN DIFF REQ, RBC 4.43, MCV 80.1 L, MCH 27.4, RDW 15.8 H, MPV 8.5, Gran % 58.1, Lymphocytes % 28.8, Monocytes % 8.6, Eosinophils % 3.2, Basophils % 1.3, Absolute Granulocytes 3.3, Absolute Lymphocytes 1.6, Absolute Monocytes 0.5, Absolute Eosinophils 0.2, Absolute Basophils 0.1, PUBS MCHC 34.2 PERC ZERO essentially ruling out pulmonary embolism, EKG was normal sinus rhythm , patient had reproducible chest pain upon deep inhalation point tenderness and upper extremity movements at this time I suspect patient had chest wall pain Patient is resting comfortably in no apparent distress Patient states that she's had chest pain "for one year with unremarkable findings. Patient has had 3 days of recurrence of chest pain in which troponin first set was highly sensitive ruling out cardiac involvement. Patient has reproducible chest pain upon deep relation palpation and upper extremity movements at this time I suspect patient have chest wall pain more than cardiovascular involvement. Discussed disposition plan with patient who agrees Upon discharge patient looks well no apparent distress sinus rhythm noted telemetry Discussed disposition plan with Dr. laurent who agrees (COLLETTE PAEZ) Diagnostic Imaging: Viewed by Me: Radiology Read. Radiology Impression: no fracture Initial ED EKG: SINUS RHYTHM NOTED 87 BPM Comments: PATIENT: MAGED BRITT PRESENT AGE: 50 PATIENT ACCOUNT NO: [id number] : 67 LOCATION: ER ORDERING PHYSICIAN: COLLETTE HUNT SERVICE DATE: 07/27/16 EXAM TYPE: RAD - XRY-CHEST XRAY, PA AND LATERAL EXAMINATION: XR CHEST CLINICAL INFORMATION: Chest pain COMPARISON: CXR from 06/22/2016 TECHNIQUE: 2 views of the chest were obtained. FINDINGS: Large body habitus. Lungs are well expanded. Linear opacities from minimal atelectasis or scarring in the medial aspect of each lower lobe. No acute pulmonary edema, focal consolidation or pleural effusion. Cardiac silhouette is borderline enlarged. Bones are unremarkable. IMPRESSION: No pulmonary edema; no acute cardiopulmonary abnormality compared to 06/22/2016. (COLLETTE PAEZ) Departure Departure Disposition: HOME OR SELF CARE Condition: Stable Clinical Impression Primary Impression: Chest wall pain Secondary Impressions: Hyperglycemia Referrals: ISIDRO MONREAL,GIOVANNI Kidd (PCP/Family) Additional Instructions: As discussed begin the prescription of Percocet as directed for your symptoms. Prescriptions waiting at your pharmacy. If no better on Saturday follow-up with your primary care commercial real estate assistant if symptoms worsen return to emergency room. Continue home medications as directed. Departure Forms: Customer Survey General Discharge Information Prescriptions: Current Visit Scripts Oxycodone HCl/Acetaminophen (Percocet 5-325 MG Tablet) 1 TAB PO BID PRN PAIN #10 TAB (COLLETTE PAEZ) PA/HOTEL OR MOTEL RECEPTIONIST Co-Sign Statement Statement: ED Attending supervision documentation- [] I saw and evaluated the patient. I have also reviewed all the pertinent lab results and diagnostic results. I agree with the findings and the plan of care as documented in the PA's/HOTEL OR MOTEL RECEPTIONIST's documentation. [X] I have reviewed the ED Record and agree with the PA's/HOTEL OR MOTEL RECEPTIONIST's documentation. [] Additions or exceptions (if any) to the PAs/HOTEL OR MOTEL RECEPTIONIST's note and plan are summarized below: [] (SELINA MONREAL,ADAL) Critical Care Note Critical Care Note Critical Care Time: non-applicable (COLLETTE PAEZ)
--- NOTE | 2016-07-27 14:43 | RADIOLOGY REPORT ---
EXAMINATION: XR CHEST CLINICAL INFORMATION: Chest pain COMPARISON: CXR from 06/22/2016 TECHNIQUE: 2 views of the chest were obtained. FINDINGS: Large body habitus. Lungs are well expanded. Linear opacities from minimal atelectasis or scarring in the medial aspect of each lower lobe. No acute pulmonary edema, focal consolidation or pleural effusion. Cardiac silhouette is borderline enlarged. Bones are unremarkable. IMPRESSION: No pulmonary edema; no acute cardiopulmonary abnormality compared to 06/22/2016.
[2016-07-27 14:46] LABS: ABSOLUTE BASOPHIL COUNT 0.1 /CUMM (0.0-0.2); ABSOLUTE EOSINOPHIL COUNT 0.2 /CUMM (0.0-0.7); ABSOLUTE GRANULOCYTE CT 3.3 /CUMM (1.4-6.5); ABSOLUTE LYMPH COUNT 1.6 /CUMM (1.2-3.4); ABSOLUTE MONOCYTE COUNT 0.5 /CUMM (0.10-0.60); BASOPHIL % 1.3 % (0.0-2.0); EOSINOPHIL % 3.2 % (0-5); GRANULOCYTE % 58.1 % (42.2-75.2); HEMATOCRIT 35.5 % (37-47); MEAN CORPUSCULAR HGB 27.4 PG (27.0-31.0); MEAN CORPUSCULAR HGB CONC 34.2 G/DL (33.0-37.0); MEAN CORPUSCULAR VOLUME 80.1 FL (81.0-99.0); MEAN PLATELET VOLUME 8.5 FL (7.4-10.4); PLATELET COUNT 226 /CUMM (130-400); RBC DISTRIBUTION WIDTH 15.8 % (11.5-14.5); RED BLOOD CELL CT 4.43 /CUMM (4.20-5.40); WHITE BLOOD CELL COUNT 5.7 /CUMM (4.8-10.8)
[2016-07-27] MEDS ORDERED: FUROSEMIDE20 M1 PO (14:51)
[2016-07-27] MEDS ORDERED: LISINOPRIL40 M1 PO (14:56)
[2016-07-27] MEDS ORDERED: AMLODIPINE BESYL5 M1 PO (14:56)
[2016-07-27] MEDS ORDERED: PERCOCET 5-3251 EACH PO (17:11)
[2016-07-27 17:30] VITALS: BP 140/70
== END 2016-07-27 17:31 ==
LOC: ERH 12:54
PROVIDERS: Physician Assistant
DX: R07.89 Other chest pain (principal); E11.65 Type 2 diabetes mellitus with hyperglycemia
CPT/HCPCS: 93005; 93010; 96372

== ENCOUNTER 2016-09-14 19:22 | Emergency (ER) | payer OTHER, MEDICARE ==
[~2016-09-14] VITALS: Ht 170.2 cm; Wt 149.7 kg
[~2016-09-14 19:22] MED LIST changes: +AMLODIPINE BESYL5 M1 PO; +FUROSEMIDE20 M1 PO; +LISINOPRIL40 M1 PO
--- NOTE | 2016-09-14 19:44 | ED CARDIAC/CP/PALPITATIONS ---
History of Present Illness General Chief Complaint: General Adult Stated Complaint: SOB, CP, NUMBNESS, LEG PAIN, JAW PAIN Source: patient, family Exam Limitations: no limitations Vital Signs & Intake/Output Vital Signs & Intake/Output Vital Signs Date Time Temp Pulse Resp B/P B/P Pulse O2 O2 Flow FiO2 Mean Ox Delivery Rate 09/14 2141 Room Air 09/15 1943 98.2 87 18 134/85 97 Room Air Allergies Coded Allergies: atorvastatin (From LIPITOR) (UNKNOWN 12/10/15) ciprofloxacin (RASH 12/10/15) etodolac (From LODINE) (HIVES 12/10/15) hydrocodone (RASH 07/03/15) latex (RASH 12/10/15) moxifloxacin (From AVELOX) (HIVES 12/10/15) tramadol (SHUTS DOWN KIDNEYS 12/10/15) Reconcile Medications Albuterol Sulfate (Proair Hfa) 90 MCG HFA.AER.AD 2 PUF INH PRN RESPIRATORY ( Reported) Amlodipine Besylate (Norvasc) 5 MG TABLET 1 TAB PO QPM BP (Reported) Aspirin (Ecotrin*) 81 MG TABLET.DR 1 TAB PO QPM HEART/BLOOD (Reported) Diphenhydramine HCl 50 MG CAPSULE 1 CAP PO QPM ALLERGIES (Reported) Epinastine HCl 0.05 % DROPS 1 DROP OPH BID BOTH EYES (Reported) Ergocalciferol (Vitamin D2) (Vitamin D2) 50,000 UNIT CAPSULE 1 CAP PO QTUES SUPPLEMENT (Reported) Fenofibric Acid (Choline) (Fenofibric Acid) 135 MG CAPSULE.DR 1 CAP PO QPM UNK (Reported) Furosemide 20 MG TABLET 1 TAB PO DAILY WATER PILL (Reported) Insulin Regular, Human (Humulin R U-500 Kwikpen) 500/ML (3) INSULN.PEN 200 UNIT SC BID DM (Reported) Levothyroxine Sodium 200 MCG TABLET 1 TAB PO BID THYROID (Reported) Levothyroxine Sodium 25 MCG TABLET 1 TAB PO BID THYROID (Reported) Lisinopril 40 MG TABLET 1 TAB PO QPM HEART (Reported) Methocarbamol (Robaxin) 500 MG TABLET 1-2 TAB PO TID MUSCLE SPASMS (Reported) Mometasone Furoate (Nasonex) 50 MCG SPRAY.PUMP 1 SPRAY JAJA DAILY PRN SEASONAL ALLERGIES (Reported) Montelukast Sodium 10 MG TABLET 1 TAB PO QPM ALLERGIES (Reported) Multiple Vitamin (Multivitamins) 1 EACH TABLET 1 TAB PO QPM SUPPLEMENT ( Reported) Nystatin/Triamcin (Nystatin-Triamcinolone Cream) 15 GM CREAM..G. 1 GIOVANY TOP BID Vulvovaginitis apply to affected area(s) Olopatadine HCl (Pataday) 0.2 % DROPS 1 GTT OPH DAILY BOTH EYES - ALLERGIES ( Reported) Ondansetron (Zofran Odt) 4 MG TAB.RAPDIS 1 TAB SL Q6H PRN GASTROPARESIS ( Reported) Oxycodone HCl/Acetaminophen (Oxycodone-Acetaminophen 5-325) 5 MG-325 MG TABLET 1 TAB PO 4XDP PAIN (Reported) Pantoprazole Sodium 40 MG TABLET.DR 1 TAB PO BID GI (Reported) Potassium Chloride 10 MEQ TAB.ER.PRT 1 TAB PO QPM HTN (Reported) Pregabalin (Lyrica) 200 MG CAPSULE 1 CAP PO TID NEUROPATHY (Reported) Rosuvastatin Calcium (Crestor) 20 MG TABLET 1 TAB PO QPM CHOLESTEROL ( Reported) Sertraline HCl 100 MG TABLET 2 TAB PO QPM DEPRESSION (Reported) Vitamin E (Dl,Tocopheryl Acet) (Vitamin E) 400 UNIT CAPSULE 3 CAP PO QPM SUPPLEMENT (Reported) Triage Note: PT SENT TO ED BY DR MOCTEZUMA FOR LEFT JAW PAIN AND NUMBNESS GOING DOWN LEFT ARM SINCE YESTERDAY. STATES CHEST PAIN OFF AND ON FOR A YEAR.JEFFREY LEG SWELLING RT>L FOR 3-4 DAYS. HAD CTA TO R/O PE YESTERDAY, NO PE. DR ROY AT BEDSIDE IN [place] Triage Nurses Notes Reviewed? yes Onset: Gradual Duration: week(s):, waxing and waning Timing: recent history Quality/Severity: mild Location: central Radiation: ALSO WITH PAIN IN LEFT JAW AND LEFT NECK Activities at Onset: none Associated Symptoms: LEFT UPPER NECK MUSCLE SPASM HPI: 51yo woman h/o diabetes, presents with central chest pain, left neck pain, radiating to left arm, off and on for more than a year. She saw her carpet inspector finished yesterday who ordered a CT angio, which was negative for a PE. She notes also a negative stress test less than one year ago. She notes no diaphoresis, syncopal type symptoms, weakness. She is otherwise well. Past History Travel History Traveled to [place] past 21 day No Medical History Any Pertinent Medical History? see below for history Neurological: migraine, peripheral neuropathy EENT: otitis media Cardiovascular: hypertension, hyperlipidemia Respiratory: asthma Gastrointestinal: GASTROPARESIS Hepatic: NONE Renal: ACUTE KIDNEY FAILURE X 2 Musculoskeletal: disk herniation, fibromyalgia, COMPARTMENT SYNDROME CELLULITIS Psychiatric: depression, insomnia Endocrine: diabetes, hypothyroidism Blood Disorders: NONE Cancer(s): NONE PROMOTIONS ASSISTANT/Reproductive: NONE History of MRSA: No History of VRE: No History of CDIFF: No Surgical History Surgical History: , hysterectomy, LOWER LUMBAR SX DISCECTOMY CARPAL TUNNEL COMPARTMENT SYNDROME TONSILS TORTICOLIS compartment syndrome surgery Psychosocial History Who do you live with Daughter Services at Home None What is your primary language Vietnamese Family History Family History, If Any: MOTHER CLL (chronic lymphoid leukemia) FH: diabetes mellitus Relation not specified for: Coronary artery disease in father Thyroid disease in father Hx Contributory? No Review of Systems Review of Systems Constitutional: Reports: no symptoms. EENTM: Reports: no symptoms. Respiratory: Reports: no symptoms. Cardiovascular: Reports: no symptoms. GI: Reports: no symptoms. Genitourinary: Reports: no symptoms. Musculoskeletal: Reports: no symptoms. Skin: Reports: no symptoms. Neurological/Psychological: Reports: no symptoms. Hematologic/Endocrine: Reports: no symptoms. Immunologic/Allergic: Reports: no symptoms. All Other Systems: Reviewed and Negative Physical Exam Physical Exam General Appearance: well developed/nourished, mild distress Head: atraumatic, normal appearance Eyes: Bilateral: normal appearance. Ears, Nose, Throat: normal pharynx, normal ENT inspection Neck: normal inspection, supple, full range of motion, left lateral paracervical muscle spasm with tenderness. Respiratory: normal breath sounds, no respiratory distress, left sided parasternal chest wall tenderness. Cardiovascular: regular rate/rhythm Back: normal inspection, normal range of motion Extremities: normal inspection, normal capillary refill, normal range of motion Neurologic/Psych: no motor/sensory deficits, awake, alert, oriented x 3 Skin: intact, normal color, warm/dry Core Measures ACS in differential dx? No Severe Sepsis Present: No Septic Shock Present: No Progress Differential Diagnosis: mi vs acs vs costochondritis vs other Plan of Care: Orders Procedure Date/time Status TROPONIN LEVEL 09/14 1933 Complete MAGNESIUM 09/14 1933 Complete COMPREHENSIVE METABOLIC PANEL 09/14 1933 Complete CBC WITHOUT DIFFERENTIAL 09/14 1933 Complete EKG 09/14 1929 Active Laboratory Tests 09/14/16 1950: Anion Gap 12, Estimated GFR 53 L, BUN/Creatinine Ratio 20.0, Glucose 238 H, Calcium 9.6, Magnesium 1.6, Total Bilirubin 0.5, AST 113 H, ALT 72 H, Alkaline Phosphatase 91, Troponin I 0.02, Total Protein 7.9, Albumin 4.7, Globulin 3.2, Albumin/Globulin Ratio 1.5, CBC w Diff NO MAN DIFF REQ, RBC 4.61, MCV 82.6, MCH 26.9 L, RDW 16.5 H, MPV 8.7, Gran % 68.5, Lymphocytes % 20.0 L, Monocytes % 7.8, Eosinophils % 2.8, Basophils % 0.9, Absolute Granulocytes 4.2, Absolute Lymphocytes 1.2, Absolute Monocytes 0.5, Absolute Eosinophils 0.2, Absolute Basophils 0.1, PUBS MCHC 32.6 L Diagnostic Imaging: Viewed by Me: CT Scan. Discussed w/RAD: CT Scan. Radiology Impression: CT ANGIO (09/13/16)... NO pe... FULL REPORT BELOW. , u/s... no dvt Initial ED EKG: normal axis, normal intervals, normal p-waves, normal QRS complex, normal sinus rhythm Comments: PATIENT: MAGED BRITT PRESENT AGE: 51 PATIENT ACCOUNT NO: [id number] : 67 LOCATION: [facility] ORDERING PHYSICIAN: CANDICE ROY MD SERVICE DATE: 09/14/16 EXAM TYPE: US - US-EXT BILAT VENOUS DOPPLER EXAMINATION: US TRIPLEX OF LOWER EXTREMITIES, BILATERAL CLINICAL INFORMATION: Lower extremity swelling. Rule out DVT. COMPARISON: None TECHNIQUE: Color-flow triplex imaging with spectral analysis and compression Doppler were performed on the lower extremities. FINDINGS: Respiratory variation, normal compression and augmented flow are noted throughout the lower extremities. The visualized common femoral vein, superficial femoral vein, profunda femoral vein, popliteal vein and midcalf peroneal and posterior tibial venous segments show no evidence of deep venous thrombosis. There is no Angel's cyst. IMPRESSION: Normal triplex scan without evidence of deep venous thrombosis involving the lower extremities. DICTATED BY: SHELBY MIRELES MD DATE/TIME DICTATED:09/14/162037 DINKEY OPERATOR SLATE:KIA DATE/TIME TRANSCRIBED:09/14/162037 CONFIDENTIAL, DO NOT COPY WITHOUT APPROPRIATE AUTHORIZATION. <Electronically signed in Other Vendor System> SIGNED BY: SHELBY MIRELES MD [id number] PATIENT: MAGED BRITT PRESENT AGE: 51 PATIENT ACCOUNT NO: [id number] : 69 [facility] ORDERING PHYSICIAN: ANAHY MOCTEZUMA MD SERVICE DATE: 09/13/16 EXAM TYPE: CAT - CTA CHEST-PULMONARY EMBOLISM EXAMINATION: CT ANGIOGRAM OF THE CHEST WITH AND WITHOUT CONTRAST (CT PULMONARY ANGIOGRAM FOR PE) CLINICAL INFORMATION: INCREASED SOB, TACHYCARDIA, R/O PE COMPARISON: Chest x-ray 07/27/2016 TECHNIQUE: Prior to contrast administration, noncontrast localization images were obtained. Subsequently, multidetector volumetric imaging was performed from the thoracic inlet to below the diaphragms following the administration of 120 mL Optiray 350 intravenous contrast. No contrast reaction reported. Sagittal, coronal, and MIP oblique sagittal reformatted images were obtained on the CT workstation, uploaded to PACS, and reviewed. Total exam dose-length product 839.94 mGy-cm. FINDINGS: There is artifact from patient body habitus. QUALITY OF STUDY/CONTRAST BOLUS: Satisfactory PULMONARY ARTERIES: No central or segmental pulmonary emboli. THORACIC AORTA: No aneurysm or dissection. LUNG: Linear scarring anterior right middle lobe and lingula. No acute infiltrate. The central bronchial airways are open PLEURA: No pleural effusion or pneumothorax. MEDIASTINUM: Normal heart size. No pericardial effusion. No hilar or mediastinal lymphadenopathy. No evidence of septal bowing or right heart strain. CHEST WALL/AXILLA: No axillary or internal mammary lymphadenopathy. OSSEOUS STRUCTURES: Degenerative change of the spine with disc height narrowing and endplate spurs of the vertebrae. UPPER ABDOMEN: Unremarkable. No reflux of contrast into the hepatic veins to suggest elevated right heart pressures. IMPRESSION: No evidence of pulmonary embolism. No acute change CT chest VTE: negative DICTATED BY: RAKESH NIELSON MD DATE/TIME DICTATED:09/13/161532 DINKEY OPERATOR SLATE:KIA DATE/TIME TRANSCRIBED:09/13/161532 CONFIDENTIAL, DO NOT COPY WITHOUT APPROPRIATE AUTHORIZATION. <Electronically signed in Other Vendor System> SIGNED BY: RAKESH NIELSON MD 09/13/16 1542 Departure Departure Disposition: HOME OR SELF CARE Condition: Stable Clinical Impression Primary Impression: Chest pain Secondary Impressions: Myalgia Referrals: ISIDRO MONREAL,GIOVANNI Kidd (PCP/Family) Departure Forms: Customer Survey General Discharge Information Comments 09/14/16, 22:30... discussed at length with patient. she feels well. she has had neck/muscle pain for the past several weeks, worse over the past 2 days... reproducible on exam with benign evaluation... i counseled her to stay for a 2nd troponin to more adequately rule out AL. She declines. I encouraged her to return if her symptoms worsen. Critical Care Note Critical Care Note Critical Care Time: non-applicable
[2016-09-14 19:55] LABS: ABSOLUTE BASOPHIL COUNT 0.1 /CUMM (0.0-0.2); ABSOLUTE EOSINOPHIL COUNT 0.2 /CUMM (0.0-0.7); ABSOLUTE GRANULOCYTE CT 4.2 /CUMM (1.4-6.5); ABSOLUTE LYMPH COUNT 1.2 /CUMM (1.2-3.4); ABSOLUTE MONOCYTE COUNT 0.5 /CUMM (0.10-0.60); BASOPHIL % 0.9 % (0.0-2.0); EOSINOPHIL % 2.8 % (0-5); GRANULOCYTE % 68.5 % (42.2-75.2); MEAN CORPUSCULAR HGB 26.9 PG (27.0-31.0); MEAN CORPUSCULAR HGB CONC 32.6 G/DL (33.0-37.0); MEAN CORPUSCULAR VOLUME 82.6 FL (81.0-99.0); MEAN PLATELET VOLUME 8.7 FL (7.4-10.4); PLATELET COUNT 216 /CUMM (130-400); RBC DISTRIBUTION WIDTH 16.5 % (11.5-14.5); RED BLOOD CELL CT 4.61 /CUMM (4.20-5.40); WHITE BLOOD CELL COUNT 6.1 /CUMM (4.8-10.8)
--- NOTE | 2016-09-14 20:42 | ULTRASOUND REPORT ---
EXAMINATION: US TRIPLEX OF LOWER EXTREMITIES, BILATERAL CLINICAL INFORMATION: Lower extremity swelling. Rule out DVT. COMPARISON: None TECHNIQUE: Color-flow triplex imaging with spectral analysis and compression Doppler were performed on the lower extremities. FINDINGS: Respiratory variation, normal compression and augmented flow are noted throughout the lower extremities. The visualized common femoral vein, superficial femoral vein, profunda femoral vein, popliteal vein and midcalf peroneal and posterior tibial venous segments show no evidence of deep venous thrombosis. There is no Angel's cyst. IMPRESSION: Normal triplex scan without evidence of deep venous thrombosis involving the lower extremities.
--- NOTE | 2016-09-14 20:50 | RADIOLOGY REPORT ---
EXAMINATION: XR CHEST CLINICAL INFORMATION: Chest pain. Shortness of breath. COMPARISON: 07/27/[address] from 09/13/2016. TECHNIQUE: 2 views of the chest were obtained. FINDINGS: The lungs are well expanded. Linear left midlung atelectasis. No edema or effusion. No pneumothorax. The cardiomediastinal silhouette is unchanged. No acute osseous abnormality. IMPRESSION: Linear left midlung atelectasis. Otherwise clear lungs.
[2016-09-14] MEDS ORDERED: PROAIR HFA8.5 GM INH (22:15)
[2016-09-14] MEDS ORDERED: LEVOTHYROXINE25 MCG PO (22:17)
[2016-09-14] MEDS ORDERED: HUMULIN R500 UNIT/2 SC (22:17)
[2016-09-14] MEDS ORDERED: EPINASTINE HCL5 ML OPH (22:19)
[2016-09-14] MEDS ORDERED: VITAMIN D250000 UNIT PO (22:20)
[2016-09-14] MEDS ORDERED: OXYCODONE-ACET1 EACH PO (22:21)
[2016-09-14] MEDS ORDERED: ZOFRAN ODT4 M1 SL (22:21)
[2016-09-14] MEDS ORDERED: PATADAY2.5 ML OPH (22:21)
[2016-09-14 22:37] VITALS: BP 113/79
== END 2016-09-14 22:39 ==
LOC: ERH 19:22
PROVIDERS: Pediatrics
DX: R07.9 Chest pain, unspecified (principal); M79.1 Myalgia
CPT/HCPCS: 93005; 93010; 93970; 96372; J1885